=== PATIENT | female | born 1995 | race Two or more races ===

== ENCOUNTER 2023-06-02 10:52 | Emergency (ER) | payer OTHER ==
[~2023-06-02] VITALS: Ht 154.9 cm; Wt 58.8 kg
[2023-06-02 11:57] VITALS: BP 129/80; PULSE 94; RESP 16; TEMP 98.9; O2SAT 98
[2023-06-02] MEDS ORDERED: ACETAMINOPHEN 500 MG TAB PO ONE (12:30)
[2023-06-02] MEDS ORDERED: KETOROLAC TROMETH 30 MG/ML 1ML VIAL IM ONE (12:30)
[2023-06-02] MEDS ORDERED: LIDOCAINE 5% TOPICAL PATCH TOP ONE (13:45)
[2023-06-02] MEDS ORDERED: IBUP1TAB5 PO (14:34)
== END 2023-06-02 14:39 | disposition home or self-care (01) ==
LOC: ER 10:52 → EEVIPCON 10:52 → ER 14:39
DX: R07.89 Other chest pain (principal); V49.9XXA Car occupant (driver) (passenger) injured in unspecified traffic accident, initial encounter; Y93.89 Activity, other specified; Y92.488 Other paved roadways as the place of occurrence of the external cause; Y99.8 Other external cause status
CPT/HCPCS: 71045; 71120; 96372; 99284; J1885; 93005